=== PATIENT | female | born 1960 | race Caucasian/White ===

== ENCOUNTER 2017-03-01 14:45 | Emergency (ER) | payer MEDICAID ==
[~2017-03-01] VITALS: Ht 162.6 cm; Wt 60.0 kg
[2017-03-01 14:46] VITALS: BP 117/70; PULSE 87; RESP 16; TEMP 98.4; O2SAT 97
--- NOTE | 2017-03-01 16:00 | PD ---
HPI Chief Complaint: Injury Time Seen by Provider: 15:53 Travel History International Travel<30 days: No Contact w/Intl Traveler<30days: No Traveled to known affect area: No History of Present Illness HPI This is a 56-year-old female presents today for to right toe pain after catching on a cabinet door. Patient states she bumped against cabinet door and bent outwards. She comes in with an obvious outwardly pointing fifth toe. There is no other injury. PFSH Past Medical History Seizures: Yes Social History Alcohol Use: No Tobacco Use: No Substance Use: No Allergies-Medications (Allergen,Severity, Reaction): Coded Allergies: No Known Allergies (Unverified , 03/01/17) Reported Meds & Prescriptions Reported Meds & Active Scripts Active Lortab (Hydrocodone-Acetaminophen) 7.5-325 Mg Tab 1 Tab PO Q6H PRN Ibuprofen 600 Mg Tab 600 Mg PO Q6H PRN Review of Systems Except as stated in HPI: all other systems reviewed are Neg Musculoskeletal: Positive: Limited ROM (right fifth toe), Pain (right fifth toe ) Physical Exam Narrative GENERAL: Well-nourished, well-developed patient. SKIN: Focused skin assessment warm/dry. HEAD: Normocephalic/atraumatic. EYES: No scleral icterus. No injection or drainage. NECK: Supple, trachea midline. MUSCULOSKELETAL: On examination patient's right foot, the right fifth toe is bent laterally. There is no obvious crepitus. There is tenderness to touch. Data Data Last Documented VS Vital Signs Date Time Temp Pulse Resp B/P Pulse Ox O2 Delivery O2 Flow Rate FiO2 03/01/17 14:46 98.4 87 16 117/70 97 Room Air Orders Toe (Min 2vws) (03/01/17 15:56) Lidocaine 2% Inj (Xylocaine 2% Inj) (03/01/17 17:15) Toe (Min 2vws) (03/01/17 18:00) Mandatory Outpatient Referral (03/01/17 18:33) Ketorolac Inj (Toradol Inj) (03/01/17 18:45) Ketorolac Inj (Toradol Inj) (03/01/17 18:45) MDM Medical Decision Making Medical Screen Exam Complete: Yes Emergency Medical Condition: Yes Differential Diagnosis Dislocation versus fracture versus contusion Narrative Course 48-year-old female who presents with right fifth toe deformity. The patient has a fracture through her middle phalanx. With angulation. The patient had a digital block with some reduction however there is still some angulation. She' s been cherry taped. She'll be placed in an orthopedic shoe. She is instructed to wear this until seen by podiatry. Diagnosis Primary Impression: Fracture of fifth toe, right, closed Additional Instructions: Wear orthopedic shoe until seen by podiatry. Received a call from a lead case manager informing you of your appointment. Med/Other Pt SpecificInfo: Prescription(s) given Scripts Hydrocodone-Acetaminophen (Lortab)7.5-325 Mg Tab1 Tab PO Q6H PRN (PAIN) #15 TAB Ref 0 Prov:Yamil Porras MD 03/01/17 Ibuprofen 600 Mg [id number] Mg PO Q6H PRN (Pain/Inflammation) #40 TAB Ref 0 Prov:Yamil Porras MD 03/01/17 Disposition: 01 DISCHARGE HOME Condition: Stable Yamil Porras MD Mar 01, 2017 16:00
--- NOTE | 2017-03-01 16:31 | RADRPT ---
EXAM DATE/TIME: 03/01/2017 16:03 [facility] COMPARISON: No previous studies available for comparison. INDICATIONS : Got toe caught in kids toy stepping out of bed. Toe fifth digit. MEDICAL HISTORY : None. SURGICAL HISTORY : None. ENCOUNTER: Initial ACUITY: 1 day PAIN SCORE: 10/10 LOCATION: Right toe fifth digit FINDINGS: Examination of the fifth digit of the right foot demonstrates angular fracture deformity proximal pha lanx right fifth toe. No dislocation. No other fractures. CONCLUSION: Angulated fracture proximal phalanx right fifth toe. Suleman Higuera MD on March 01, 2017 at 16:28 Board Certified Radiologist. This report was verified electronically.
[2017-03-01] MEDS ORDERED: LIDOCAINE HCL 2% 20 ML VIAL INFIL ONE (17:15)
--- NOTE | 2017-03-01 18:34 | RADRPT ---
EXAM DATE/TIME: 03/01/2017 18:08 [facility] COMPARISON: No previous studies available for comparison. INDICATIONS : Post procedure. MEDICAL HISTORY : None. SURGICAL HISTORY : None. ENCOUNTER: Initial ACUITY: 1 day PAIN SCORE: 0/10 LOCATION: Right 5th toe FINDINGS: There is slight improvement in alignment of the angulated fracture proximal phalanx right fifth toe. No dislocation. No other fractures. CONCLUSION: 1. Slight improvement in alignment of right fifth or fracture. Suleman Higuera MD on March 01, 2017 at 18:32 Board Certified Radiologist. This report was verified electronically.
[2017-03-01] MEDS ORDERED: IBUP-232 PO (18:42)
[2017-03-01] MEDS ORDERED: HYDR-3534 PO (18:42)
[2017-03-01] MEDS ORDERED: KETOROLAC TROMETHAMINE 60 MG/2 ML (IM) VIAL IM ONE ×2 (18:45)
== END 2017-03-01 19:05 | disposition home or self-care (01) ==
LOC: NEPD 14:45
DX: S92.911A Unspecified fracture of right toe(s), initial encounter for closed fracture (principal); W22.8XXA Striking against or struck by other objects, initial encounter
CPT/HCPCS: 28660; 73660; 96372; 99283; J1885